=== PATIENT | female | born 1945 | race Caucasian/White ===

== ENCOUNTER 2016-10-02 17:06 | Observation (INO) | payer MEDICARE ==
[2016-10-02] MEDS ORDERED: Acetaminophen 325 MG Tab PO PRN (17:39)
--- NOTE | 2016-10-02 17:58 | PCM.HP ---
H&P History of Present Illness - General Date of Service: 10/02/16 Admit Problem/Dx: Admission Diagnosis/Problem Admission Diagnosis/Problem Bleeding Source of Information: Patient History Limitations: Reports: No Limitations - History of Present Illness Initial Comments - Free Text/Narative: Ms. Pandya is a 71 yo female with history as below who presented to clinic today for evaluation of inability to void since last night at 6 pm. She has been drinking well and not having any vomiting or diarrhea. She has had the urge to void and tried sitting in a warm bath and drinking tea but still was unable to go. She denied any preceding dysuria, frequency, or urgency. Throughout the day today, she also noted leaking of bright red blood from her rectum. She stated this was mixed with mucous and was different in appearance than the bleeding she has had previously from her gastric ulcer. She has had some rectal pain. She also felt like her rectum may have prolapsed but she was able to reduce this on her own while sitting in the warm bath. The bleeding is small in quantity. She has a long history of diarrhea described in color as yellow. A colonoscopy in June 2016 was completely normal.. She has had some lower back pain as well as some lower abdominal pain along with this. She also states she had a fever to 101.2 a couple of days ago but that has not recurred. Her lower abdominal pain improved once she was I/O catheterized in clinic after the bladder scan showed >1 L of urine in her bladder. She had bronchitis a month ago but those symptoms are resolving. She did take levaquin for that. She denies any vaginal bleeding. - Related Data Allergies/Adverse Reactions: Allergies Allergy/AdvReac Type Severity Reaction Status Date / Time aspartame Allergy Cannot Verified 06/22/16 09:24 Remember Home Medications: Home Meds Aspirin [Halfprin] 81 mg PO BEDTIME 08/15/14 [History] LORazepam 0.5 - 1 mg PO BEDTIME 08/15/14 [History] Lovastatin 10 mg PO BEDTIME 08/15/14 [History] Metoprolol Succinate [Toprol XL] 12.5 mg PO BEDTIME 08/15/14 [History] Omeprazole [Prilosec] 20 mg PO BID 08/15/14 [History] Sodium Chloride [Saline Nasal [place]] 1 spray NS ASDIRECTED 08/15/14 [History] Albuterol/Ipratropium [DuoNeb 3.0-0.5 MG/3 ML] 3 ml NEB QID 06/16/16 [History] Calcium Carbonate/Vitamin D3 [Calcium 600 + D3 Softgel] 1 each PO BEDTIME [History] Cyanocobalamin (Vitamin B-12) [Vitamin B-12] 1,000 mcg IM Q30D 06/16/16 [History ] EPINEPHrine [Epipen] 0.3 mg IM ONETIME PRN 06/16/16 [History] Ferrous Sulfate 325 mg PO TID 06/16/16 [History] Fish Oil/[place]-3 Fatty Acids [Fish Oil] 1 each PO BEDTIME 06/16/16 [History] Hypromellose [GenTeal Mild to Moderate Ophth Soln] 1 drop EYEBOTH Q4H PRN [History] Magnesium Oxide 250 mg PO BEDTIME 06/16/16 [History] Multivitamin [Daily Multiple Vitamin] 1 tab PO BEDTIME 06/16/16 [History] Nitroglycerin [IJP: Nitroglycerin] 0.4 mg SL ASDIRECTED PRN 06/16/16 [History] Past Medical History HEENT History: Reports: Cataract Other HEENT History: Dry nares Cardiovascular History: Reports: CAD, Heart Failure, High Cholesterol, Hypertension Other Cardiovascular History: cornonary arthrosclerosis. mitral valve regurgitation. diastolic dysfunction (EF 60%). venous insufficiency (edema) Respiratory History: Reports: COPD Gastrointestinal History: Reports: Chronic Diarrhea, Hemorrhoids Genitourinary History: Reports: Chronic Renal Insuffiency Other Genitourinary History: CKD III Musculoskeletal History: Reports: Arthritis Other Musculoskeletal History: osteopenia. nocturnal leg cramps Neurological History: Reports: None Psychiatric History: Reports: Anxiety Endocrine/Metabolic History: Reports: Diabetes, Type II, Obesity/BMI 30+, Other (See Below) (vitamin B12 deficiency) Hematologic History: Reports: B12 Deficiency Immunologic History: Reports: None Oncologic (Cancer) History: Reports: None - Past Surgical History Head Surgeries/Procedures: Reports: None HEENT Surgical History: Reports: None Cardiovascular Surgical History: Reports: Coronary Artery Bypass Respiratory Surgical History: Reports: None GI Surgical History: Reports: Bariatric Procedure, Cholecystectomy, Colonoscopy Female Surgical History: Reports: Tubal Ligation Musculoskeletal Surgical History: Reports: Knee Replacement Oncologic Surgical History: Reports: None Social & Family History - Family History HEENT: Reports: Glaucoma Cardiac: Reports: CAD, High Cholesterol, Hypertension Respiratory: Reports: COPD Neurological: Reports: CVA Endocrine/Metabolic: Reports: Diabetes, type II - Tobacco Use Smoking Status *Q: Former Smoker Used Tobacco, but Quit: Yes Month Tobacco Last Used: quite 1988 - Caffeine Use Caffeine Use: Reports: Coffee, Tea - Alcohol Use Alcohol Use History: No Days Per Week of Alcohol Use: 0 Number of Drinks Per Day: 0 Total Drinks Per Week: 0 Alcohol Use in Last Twelve Months: Yes Alcohol Use Frequency: Rarely - Recreational Drug Use Recreational Drug Use: No Drug Use in Last 12 Months: No - Living Situation & Occupation Living situation: Reports: ( ; lives with retirement boyfriend), with Significant Other Occupation: Retired H&P Review of Systems - Review of Systems: Review Of Systems: See Below General: Reports: Fever, Weakness, Decreased Appetite HEENT: Reports: No Symptoms Pulmonary: Reports: No Symptoms Cardiovascular: Reports: No Symptoms Gastrointestinal: Reports: Abdominal Pain, Bloody Stool, Diarrhea, Decreased Appetite Genitourinary: Reports: Retention. Denies: Dysuria, Frequency, Burning, Urgency , Abnormal Menses Musculoskeletal: Reports: No Symptoms Skin: Reports: No Symptoms Psychiatric: Reports: No Symptoms Neurological: Reports: No Symptoms Exam - Exam Exam: See Below - Vital Signs Vital Signs: Last Vital Signs Temp 37.4 C 10/02/16 17:21 Pulse 102 H 10/02/16 17:21 Resp 18 10/02/16 17:21 BP 175/78 H 10/02/16 17:21 Pulse Ox 99 10/02/16 17:21 Weight: 91.263 kg - Exam General: Alert, Oriented, Cooperative. No: Mild Distress, Moderate Distress, Severe Distress HEENT: Conjunctiva Clear, Hearing Intact, Mucosa Moist & [place], Posterior Pharynx Clear, Pupils Equal, Pupils Reactive, TMs Clear Neck: Supple, Trachea Midline. No: Lymphadenopathy, Thyromegaly Lungs: Clear to Auscultation, Normal Respiratory Effort Cardiovascular: Regular Rate, Regular Rhythm, Normal S1, Normal S2. No: Systolic Murmur, Diastolic Murmur Abdomen: Normal Bowel Sounds, Soft. No: Organomegaly, Peritoneal Signs, Distention, Tenderness Rectal (Female) Exam: Normal Rectal Tone, Bloody Stool. No: Tenderness Back Exam: Normal Inspection, Full Range of Motion, Paraspinal Tenderness. No: Vertebral Tenderness Extremities: Normal Inspection, Normal Pulses, Edema (1+ to just below the knee bilaterally) Skin: Warm, Dry, Intact Neurological: Cranial Nerves Intact, Normal Speech, Normal Tone. No: Focal Deficit - Patient Data Result Diagrams: 10/02/16 20:22 *Q Meaningful Use (ADM) - VTE *Q VTE Criteria *Q: VTE Anticoagulation Contraindications: Med/tx not indicated/need - Stroke *Q Stroke Criteria *Q: - AMI *Q AMI Criteria *Q: - Problem List (1) Rectal bleeding SNOMED Code(s): 59769858 ICD Code: K62.5 - HEMORRHAGE OF ANUS AND RECTUM Status: Acute Current Visit: Yes Problem Details: - The bleeding seems to be a slow ooze. - Unclear etiology given recent colonoscopy (06/2016) was negative. Consider hemorrhoids vs. rectal ulceration from possible prolapse. Bleeding is not consistent with divertiulosis and would not be polyps or malignancy given recent negative colonoscopy. - Given stability of vital signs over time, would not be consistent with an upper GI bleed as this would have to be quite brisk to still be red. - CT negative apart from a "prominent uterus for age." - Although unlikely in the absence of colitis on CT, clostridium difficile infection is considered based on recent antibiotics. Will hopefully get a sample to send for this. - Since she [place] far out of town, the decision was made to admit her and monitor her hemoglobins and bleeding. - Will check CBC tonight and then again in the am. - If the bleeding stays quite minimal and her Hgb is stable, will likely dismiss home tomorrow with close outpatient follow-up. - Will do an INR and type and screen with her lab drawn this evening. - There is no indication for any antibiotics at this time. (2) Urinary retention SNOMED Code(s): 207917966 ICD Code: R33.9 - RETENTION OF URINE, UNSPECIFIED Status: Acute Current Visit: Yes Problem Details: - Unclear etiology for this as she has not had any recent medication changes. - Query whether it might be related to her enlarged uterus. - U/A completely negative in clinic, excluding UTI. - Will bladder scan q8 hours and I/O cath for residual >400. - She will need an u/s to be done and will hopefully be able to do that this week if she stays stable and is able to dismiss tomorrow. (3) Hypertension SNOMED Code(s): 04059451 ICD Code: I10 - ESSENTIAL (PRIMARY) HYPERTENSION Status: Chronic Current Visit: Yes Problem Details: - BP elevated on admission. - Will monitor over time. - In the absence of any symptoms, would not treat with additional hypertensives in the setting of a GI bleed. - Continue metoprolol. Qualifiers: Hypertension type: essential hypertension Qualified Code(s): I10 - Essential (primary) hypertension (4) CAD (coronary artery disease) SNOMED Code(s): 13067813 ICD Code: I25.10 - ATHSCL HEART DISEASE OF [place] CORONARY ARTERY W/O ANG PCTRS Status: Chronic Current Visit: Yes Problem Details: - Asymptomatic. - Continue metoprolol and aspirin. ASA should be fine given this is a lower GI bleed and it would be risky to hold this given her cardiac history. - Hold statin as she is only on this 3 days/week anyway. Qualifiers: Coronary Disease-Associated Artery/Lesion type: [place] artery [place] vs. transplanted heart: [place] heart Associated angina: without angina Qualified Code(s): I25.10 - Atherosclerotic heart disease of [place] coronary artery without angina pectoris (5) Mitral regurgitation SNOMED Code(s): 48656353 ICD Code: I34.0 - NONRHEUMATIC MITRAL (VALVE) INSUFFICIENCY Status: Chronic Current Visit: Yes Problem Details: - See above. Qualifiers: Cardiac valve disease etiology: nonrheumatic Qualified Code(s): I34.0 - Nonrheumatic mitral (valve) insufficiency (6) COPD (chronic obstructive pulmonary disease) SNOMED Code(s): 33106069 ICD Code: J44.9 - CHRONIC OBSTRUCTIVE PULMONARY DISEASE, UNSPECIFIED Status : Chronic Current Visit: Yes Problem Details: - Asymptomatic. - Continue scheduled DuoNebs. Qualifiers: COPD type: unspecified COPD Qualified Code(s): J44.9 - Chronic obstructive pulmonary disease, unspecified (7) Hyperlipidemia SNOMED Code(s): 76465288 ICD Code: E78.5 - HYPERLIPIDEMIA, UNSPECIFIED Status: Chronic Current Visit: Yes Problem Details: - Lovastatin will be held as this is nonformulary and she only takes this 3 days/week anyway. Qualifiers: Hyperlipidemia type: unspecified Qualified Code(s): E78.5 - Hyperlipidemia , unspecified (8) Diabetes mellitus SNOMED Code(s): 55864132 ICD Code: E11.9 - TYPE 2 DIABETES MELLITUS WITHOUT COMPLICATIONS Status: Chronic Current Visit: Yes Problem Details: - Has not been on medications since gastric bypass surgery. - Will not monitor glucoses in the absence of being on any treatment for her diabetes. 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 (10) Obesity SNOMED Code(s): 678730653 ICD Code: E66.9 - OBESITY, UNSPECIFIED Status: Chronic Current Visit: Yes Problem Details: - s/p gastric bypass. - As above, do not believe this is an upper GI bleed. - Continue omeprazole. Qualifiers: Obesity type: due to excess calories Obesity severity: non-morbid Qualified Code(s): E66.09 - Other obesity due to excess calories (11) Generalized anxiety disorder SNOMED Code(s): 06964952 ICD Code: F41.1 - GENERALIZED ANXIETY DISORDER Status: Chronic Current Visit: Yes Problem Details: - Continue lorazepam. (12) Chronic kidney disease SNOMED Code(s): 310014586 ICD Code: N18.9 - CHRONIC KIDNEY DISEASE, UNSPECIFIED Status: Chronic Current Visit: Yes Problem Details: - Creatinine at baseline when checked in clinic today. - Will give 500 cc this evening due to receiving contrast today. - Otherwise, will monitor daily. - Avoid further nephrotoxic agents and renally dose all medications. Qualifiers: Chronic kidney disease stage: stage 3 (moderate) Qualified Code(s): N18.3 - Chronic kidney disease, stage 3 (moderate) (13) Congestive heart failure SNOMED Code(s): 67528364 ICD Code: I50.9 - HEART FAILURE, UNSPECIFIED Status: Acute Current Visit : Yes Problem Details: - Asymptomatic. - See above under other cardiology problems. Qualifiers: Congestive heart failure type: diastolic Congestive heart failure chronicity: chronic Qualified Code(s): I50.32 - Chronic diastolic (congestive ) heart failure Problem List Initiated/Reviewed/Updated: Yes Orders Last 24hrs: Active Orders 24 hr Category Date Time Status Patient Status [ADT] Routine ADT 10/02/16 17:07 Active Notify Provider Vital Signs [RC] ASDIRECTED Care 10/02/16 17:40 Ordered Oxygen Therapy [RC] PRN Care 10/02/16 17:39 Ordered Up With Assistance [RC] ASDIRECTED Care 10/02/16 17:39 Ordered VTE/DVT Education [RC] PER UNIT ROUTINE Care 10/02/16 17:39 Ordered Vital Signs [RC] Q4H Care 10/02/16 17:39 Ordered Clear Liquid Diet [DIET] Diet 10/02/16 Dinner Ordered C DIFFICILE TOXIN BY PCR [MREF] Routine Lab 10/02/16 17:42 Uncollected CBC WITH AUTO DIFF [HEME] Routine Lab 10/02/16 20:00 Ordered CBC WITH AUTO DIFF [HEME] Routine Lab 10/03/16 05:11 Ordered Acetaminophen [Tylenol] Med 10/02/16 17:39 Ordered 650 mg PO Q4H PRN Anticoagulation Contraindications VTE [AST] Per Unit Oth 10/02/16 17:39 Ordered Routine Resuscitation Status Routine Resus Stat 10/02/16 17:39 Ordered Medication Orders Acetaminophen (Tylenol) 650 mg PO Q4H PRN PRN Reason: Pain (Mild 1-3)/fever Assessment/Plan Comment:: 71 yo female admitted under observation for monitoring of her hemoglobin and GI bleeding as well as to ensure she is able to void on her own. Please see details under problems above. No VTE prophylaxis indicated in the setting of her GI bleed and also presuming her stay will be <24 hours. She will be full code based on discussions on admission. Anticipate dismissal home tomorrow unless there is a change in her clinical status.
[2016-10-02] MEDS ORDERED: Sodium Chloride 0.9% 500 ML IV SCH (18:00)
[2016-10-02] MEDS ORDERED: Dextran 70/Hypromellose/PF Ophth Soln 0.9 ML UD EYEBOTH PRN (18:19)
[2016-10-02] MEDS ORDERED: Magnesium Oxide 400 MG Tab PO SCH (20:00)
[2016-10-02] MEDS ORDERED: Metoprolol Succinate 25 MG Tab.ER PO SCH (20:00)
[2016-10-02] MEDS ORDERED: LORazepam 0.5 MG Tab PO SCH (20:00)
[2016-10-02] MEDS ORDERED: Calcium Carbonate/Vitamin D3 1250 MG-200 Unit Tab PO SCH (20:00)
[2016-10-02] MEDS ORDERED: Aspirin 81 MG Tab.EC PO SCH (20:00)
[2016-10-02] MEDS: Omeprazole 20 MG Cap.CR PO SCH (20:24)
[2016-10-02] MEDS: Ferrous Sulfate 325 MG Tab PO SCH (20:24)
[2016-10-02] MEDS: Albuterol/Ipratropium 3.0-0.5 MG/3 ML Neb Soln NEB SCH (20:25)
[2016-10-03] MEDS: Albuterol/Ipratropium 3.0-0.5 MG/3 ML Neb Soln NEB SCH ×3 (07:30→14:42)
[2016-10-03] MEDS: Ferrous Sulfate 325 MG Tab PO SCH ×2 (08:05→11:48)
[2016-10-03] MEDS: Omeprazole 20 MG Cap.CR PO SCH (08:05)
--- NOTE | 2016-10-03 08:14 | PCM.PN ---
- General Info Date of Service: 10/03/16 Subjective Update: Slept ok. Continues with slow ooze from her rectum. Able to void on her own at times but did have to get I/O catheterized as least twice overnight. Otherwise, ROS negative as below. - Review of Systems General: Reports: No Symptoms HEENT: Reports: no symptoms Pulmonary: Reports: no symptoms Cardiovascular: Reports: No Symptoms Musculoskeletal: Reports: no symptoms Skin: Reports: no symptoms - Patient Data Vitals - most recent: Last Vital Signs Temp 36.7 C 10/03/16 05:15 Pulse 67 10/03/16 05:15 Resp 16 10/03/16 05:15 BP 137/65 10/03/16 05:15 Pulse Ox 94 L 10/03/16 07:29 Weight - most recent: 91.263 kg I&O - last 24 hours: Intake & Output 10/02/16 10/03/16 10/03/16 22:59 06:59 14:59 Intake Total 700 Output Total 1200 1400 Balance -1200 -700 Lab Results last 24 hrs: Laboratory Results - last 24 hr 10/02/16 10/02/16 10/02/16 Range/Units 20:22 20:22 20:22 WBC 8.9 (4.0-10.0) x10^3/uL RBC 4.04 (4.00-5.50) x10^6/uL Hgb 11.7 L D (12.0-16.0) g/dL Hct 35.6 (33.0-47.0) % MCV 88.1 (78.0-93.0) fL MCH 29.0 (26.0-32.0) pg MCHC 32.9 (32.0-36.0) g/dL RDW Coeff of [place] 14.8 (10.0-15.0) % Plt Count 219 (130-400) x10^3/uL Neut % (Auto) 72.9 (50.0-80.0) % Lymph % (Auto) 18.9 L (25.0-50.0) % [place] % (Auto) 5.5 (2.0-11.0) % Eos % (Auto) 2.4 (0.0-4.0) % Baso % (Auto) 0.3 (0.2-1.2) % PT 10.2 (10.0-12.8) SEC INR 0.9 L (2.0-3.5) Sodium (136-145) mmol/L Potassium (3.5-5.1) mmol/L Chloride (98-107) mmol/L Carbon Dioxide (21-32) mmol/L BUN (7-18) mg/dL Creatinine (0.55-1.02) mg/dL Est Cr Clr Drug Dosing mL/min Estimated GFR (MDRD) Glucose (74-106) mg/dL Calcium (8.5-10.1) mg/dL Blood Type O POSITIVE Gel Antibody Screen Negative 10/03/16 10/03/16 Range/Units 06:57 06:57 WBC 6.4 (4.0-10.0) x10^3/uL RBC 3.81 L (4.00-5.50) x10^6/uL Hgb 11.1 L (12.0-16.0) g/dL Hct 33.6 (33.0-47.0) % MCV 88.2 (78.0-93.0) fL MCH 29.1 (26.0-32.0) pg MCHC 33.0 (32.0-36.0) g/dL RDW Coeff of [place] 14.9 (10.0-15.0) % Plt Count 195 (130-400) x10^3/uL Neut % (Auto) 61.5 (50.0-80.0) % Lymph % (Auto) 25.8 (25.0-50.0) % [place] % (Auto) 7.1 (2.0-11.0) % Eos % (Auto) 5.0 H (0.0-4.0) % Baso % (Auto) 0.6 (0.2-1.2) % PT (10.0-12.8) SEC INR (2.0-3.5) Sodium 143 (136-145) mmol/L Potassium 3.7 (3.5-5.1) mmol/L Chloride 108 H (98-107) mmol/L Carbon Dioxide 29 (21-32) mmol/L BUN 9 (7-18) mg/dL Creatinine 1.0 (0.55-1.02) mg/dL Est Cr Clr Drug Dosing 36.53 mL/min Estimated GFR (MDRD) 55 Glucose 104 (74-106) mg/dL Calcium 8.5 (8.5-10.1) mg/dL Blood Type Gel Antibody Screen Med Orders - Current: Current Medications Acetaminophen (Tylenol) 650 mg PO Q4H PRN PRN Reason: Pain (Mild 1-3)/fever Albuterol/Ipratropium (Duoneb 3.0-0.5 Mg/3 Ml) 3 ml NEB QIDRT [facility] Last Admin: 10/03/16 07:30 Dose: 3 ml Aspirin (Halfprin) 81 mg PO BEDTIME [facility] Last Admin: 10/02/16 20:23 Dose: 81 mg Calcium Carbonate (Calcium Carbonate/Vitamin D 1250 Mg-200 Unit) 1 tab PO BEDTIME [facility] Last Admin: 10/02/16 20:24 Dose: 1 tab Ferrous Sulfate (Ferrous Sulfate) 325 mg PO TID [facility] Last Admin: 10/03/16 08:05 Dose: 325 mg Sodium Chloride (Normal Saline) 500 mls @ 100 mls/hr IV ASDIRECTED [facility] Last Admin: 10/02/16 19:00 Dose: 100 mls/hr Lorazepam (Ativan) 0.5 mg PO BEDTIME [facility] Last Admin: 10/02/16 20:23 Dose: 0.5 mg Magnesium Oxide (Magnesium Oxide) 400 mg PO BEDTIME [facility] Last Admin: 10/02/16 20:24 Dose: 400 mg Metoprolol Succinate (Toprol Xl) 12.5 mg PO BEDTIME [facility] Last Admin: 10/02/16 20:23 Dose: 12.5 mg Non-Formulary Medication (Hypromellose [[place] Mild To Moderate Ophth Soln]) 1 drop EYEBOTH Q4H PRN PRN Reason: Dry Eyes Omeprazole (Omeprazole) 20 mg PO BID [facility] Last Admin: 10/03/16 08:05 Dose: 20 mg - Exam General: alert, cooperative, no acute distress HEENT: Pupils equal, Pupils reactive, Mucous membr. moist/pink Neck: supple, no thyromegaly. No: lymphadenopathy Lungs: Clear to auscultation, Normal respiratory effort Cardiovascular: Regular Rate, Regular Rhythm Abdomen: bowel sounds present, soft, no tenderness, no distension Extremities: no edema, normal pulses Skin: warm, dry, intact - Problem List & Annotations (1) Rectal bleeding SNOMED Code(s): 30587745 Code(s): K62.5 - HEMORRHAGE OF ANUS AND RECTUM Status: Acute Current Visit: Yes Annotation/Comment:: - The bleeding seems to be a slow ooze. - Unclear etiology given recent colonoscopy (06/2016) was negative. - CT negative apart from a "prominent uterus for age." - Clostridium difficile test is pending. - Hgb down a bit but overall stable. Will plan to recheck again at 2 pm and consider dismissal at that time if stable. - There is no indication for any antibiotics at this time. (2) Urinary retention SNOMED Code(s): 681757584 Code(s): R33.9 - RETENTION OF URINE, UNSPECIFIED Status: Acute Current Visit: Yes Annotation/Comment:: - Unclear etiology for this as she has not had any recent medication changes. Better overnight though. - Query whether it might be related to her enlarged uterus. - U/A completely negative in clinic, excluding UTI. - Will bladder scan q8 hours and I/O cath for residual >400. - She will need an u/s to be done and will hopefully be able to do that this week if she stays stable and is able to dismiss tomorrow. (3) Hypertension SNOMED Code(s): 97820639 Code(s): I10 - ESSENTIAL (PRIMARY) HYPERTENSION Status: Chronic Current Visit: Yes Qualifiers: Hypertension type: essential hypertension Qualified Code(s): I10 - Essential (primary) hypertension Annotation/Comment:: - BP better overnight. - Continue metoprolol. (4) CAD (coronary artery disease) SNOMED Code(s): 33695778 Code(s): I25.10 - ATHSCL HEART DISEASE OF [place] CORONARY ARTERY W/O ANG PCTRS Status: Chronic Current Visit: Yes Qualifiers: Coronary Disease-Associated Artery/Lesion type: [place] artery [place] vs. transplanted heart: [place] heart Associated angina: without angina Qualified Code(s): I25.10 - Atherosclerotic heart disease of [place] coronary artery without angina pectoris Annotation/Comment:: - Asymptomatic. - Continue metoprolol and aspirin. ASA should be fine given this is a lower GI bleed and it would be risky to hold this given her cardiac history. - Hold statin as she is only on this 3 days/week anyway. (5) Mitral regurgitation SNOMED Code(s): 17578873 Code(s): I34.0 - NONRHEUMATIC MITRAL (VALVE) INSUFFICIENCY Status: Chronic Current Visit: Yes Qualifiers: Cardiac valve disease etiology: nonrheumatic Qualified Code(s): I34.0 - Nonrheumatic mitral (valve) insufficiency Annotation/Comment:: - See above. (6) COPD (chronic obstructive pulmonary disease) SNOMED Code(s): 92418104 Code(s): J44.9 - CHRONIC OBSTRUCTIVE PULMONARY DISEASE, UNSPECIFIED Status : Chronic Current Visit: Yes Qualifiers: COPD type: unspecified COPD Qualified Code(s): J44.9 - Chronic obstructive pulmonary disease, unspecified Annotation/Comment:: - Asymptomatic. - Continue scheduled DuoNebs. (7) Hyperlipidemia SNOMED Code(s): 53984255 Code(s): E78.5 - HYPERLIPIDEMIA, UNSPECIFIED Status: Chronic Current Visit: Yes Qualifiers: Hyperlipidemia type: unspecified Qualified Code(s): E78.5 - Hyperlipidemia , unspecified Annotation/Comment:: - Lovastatin will be held as this is nonformulary and she only takes this 3 days/week anyway. (8) Diabetes mellitus SNOMED Code(s): 00002529 Code(s): E11.9 - TYPE 2 DIABETES MELLITUS WITHOUT COMPLICATIONS Status: Chronic Current Visit: Yes Qualifiers: Diabetes mellitus type: type 2 Diabetes mellitus complication status: without complication Diabetes mellitus half-way insulin use: without half-way use Qualified Code(s): E11.9 - Type 2 diabetes mellitus without complications Annotation/Comment:: - Has not been on medications since gastric bypass surgery. - Will not monitor glucoses in the absence of being on any treatment for her diabetes. (9) Vitamin B12 deficiency SNOMED Code(s): 860629644 Code(s): E53.8 - DEFICIENCY OF OTHER SPECIFIED B GROUP VITAMINS Status: Chronic Current Visit: Yes Annotation/Comment:: - Not due for vitamin B12 at this time. (10) Obesity SNOMED Code(s): 399126867 Code(s): E66.9 - OBESITY, UNSPECIFIED Status: Chronic Current Visit: Yes Qualifiers: Obesity type: due to excess calories Obesity severity: non-morbid Qualified Code(s): E66.09 - Other obesity due to excess calories Annotation/Comment:: - s/p gastric bypass. - As above, do not believe this is an upper GI bleed. - Continue omeprazole. (11) Generalized anxiety disorder SNOMED Code(s): 94717618 Code(s): F41.1 - GENERALIZED ANXIETY DISORDER Status: Chronic Current Visit: Yes Annotation/Comment:: - Continue lorazepam. (12) Chronic kidney disease SNOMED Code(s): 057403885 Code(s): N18.9 - CHRONIC KIDNEY DISEASE, UNSPECIFIED Status: Chronic Current Visit: Yes Qualifiers: Chronic kidney disease stage: stage 3 (moderate) Qualified Code(s): N18.3 - Chronic kidney disease, stage 3 (moderate) Annotation/Comment:: - Creatinine at baseline when checked in clinic today. - Will give 500 cc this evening due to receiving contrast today. - Otherwise, will monitor daily. - Avoid further nephrotoxic agents and renally dose all medications. (13) Congestive heart failure SNOMED Code(s): 04992525 Code(s): I50.9 - HEART FAILURE, UNSPECIFIED Status: Acute Current Visit: Yes Qualifiers: Congestive heart failure type: diastolic Congestive heart failure chronicity: chronic Qualified Code(s): I50.32 - Chronic diastolic (congestive ) heart failure Annotation/Comment:: - Asymptomatic. - See above under other cardiology problems. - Problem List Review Problem List Initiated/Reviewed/Updated: Yes - My Orders Last 24 Hours: My Active Orders 10/02/16 17:07 Patient Status [ADT] Routine 10/02/16 17:39 Oxygen Therapy [RC] PRN Up With Assistance [RC] ASDIRECTED VTE/DVT Education [RC] .PRN Vital Signs [RC] 06,10,14,18,22,02 Acetaminophen [Tylenol] 650 mg PO Q4H PRN Anticoagulation Contraindications VTE [AST] Per Unit Routine Resuscitation Status Routine 10/02/16 17:40 Notify Provider Vital Signs [RC] ASDIRECTED 10/02/16 18:00 Sodium Chloride 0.9% [Normal Saline] 500 ml IV ASDIRECTED 10/02/16 18:19 Hypromellose [GenTeal Mild to Moderate Ophth Soln] 1 drop EYEBOTH Q4H PRN 10/02/16 19:19 C DIFFICILE TOXIN BY PCR [MREF] Routine 10/02/16 20:00 Bladder Scan [RC] 20,04,12 Albuterol/Ipratropium [DuoNeb 3.0-0.5 MG/3 ML] 3 ml NEB QIDRT Aspirin [Halfprin] 81 mg PO BEDTIME Calcium Carbonate/Vitamin D3 [Calcium Carbonate/Vitamin D 1250 MG-200 Unit] 1 tab PO BEDTIME Ferrous Sulfate 325 mg PO TID LORazepam [Ativan] 0.5 mg PO BEDTIME Magnesium Oxide 400 mg PO BEDTIME Metoprolol Succinate [Toprol XL] 12.5 mg PO BEDTIME Omeprazole 20 mg PO BID 10/02/16 Dinner Clear Liquid Diet [DIET] 10/03/16 14:00 CBC WITH AUTO DIFF [HEME] Routine - Assessment Assessment:: 71 yo female admitted for monitoring related to bright red rectal bleeding and urinary retention. Stable this morning. Hgb down slightly. - Plan Plan:: Please see details under problems above. No VTE prophylaxis indicated in the setting of her GI bleed and also presuming her stay will be <24 hours. She will be full code based on discussions on admission. Recheck hemoglobin at 2 pm and will decide disposition at that time - may be dismissing home today or possibly tomorrow depending on that result.
[2016-10-03 13:50] VITALS: BP 155/73
--- NOTE | 2016-10-03 15:55 | PCM.DCSUM1 ---
Discharge Summary - Hospital Course Brief History: Ms. Pandya is a 71 yo female who was admitted for observation related to bright red rectal bleeding and difficulty with urination. Although her labs in clinic were stable, the decision was made to admit her in the setting of her living remote from the [facility]. - Discharge Data Discharge Date: 10/03/16 Discharge Disposition: Home, Self-Care 01 Condition: Good - Discharge Diagnosis/Problem(s) (1) Rectal bleeding SNOMED Code(s): 14571242 ICD Code: K62.5 - HEMORRHAGE OF ANUS AND RECTUM Status: Acute Current Visit: Yes Problem Details: Her rectal bleeding has now resolved. Unclear etiology given recent colonoscopy (06/2016) was negative. Absence of vital sign instability essentially rules out upper GI etiology given bleeding was bright red. CT negative apart from a "prominent uterus for age." Clostridium difficile test is pending. Hemoglobin has been stable over the past 24 hours and her bleeding has resolved; therefore, she is stable for dismissal home with follow-up tomorrow in clinic. (2) Urinary retention SNOMED Code(s): 342676167 ICD Code: R33.9 - RETENTION OF URINE, UNSPECIFIED Status: Resolved Current Visit: Yes Problem Details: Unclear etiology for this as she has not had any recent medication changes and urinalysis was negative for any infection. Possibly related to uteromegaly. This is now resolved and she is voiding on her own. She will have a pelvis ultrasound done tomorrow before her follow-up appointment for further assessment of her uterus. (3) Hypertension SNOMED Code(s): 31837941 ICD Code: I10 - ESSENTIAL (PRIMARY) HYPERTENSION Status: Chronic Current Visit: Yes Problem Details: Blood pressure was initially elevated but improved throughout her stay. Home medications continued. Qualifiers: Hypertension type: essential hypertension Qualified Code(s): I10 - Essential (primary) hypertension (4) CAD (coronary artery disease) SNOMED Code(s): 27577074 ICD Code: I25.10 - ATHSCL HEART DISEASE OF [place] CORONARY ARTERY W/O ANG PCTRS Status: Chronic Current Visit: Yes Problem Details: Asymptomatic. Home medications continued with the exception of her lovastatin, which she only takes 3 days/week. Qualifiers: Coronary Disease-Associated Artery/Lesion type: [place] artery [place] vs. transplanted heart: [place] heart Associated angina: without angina Qualified Code(s): I25.10 - Atherosclerotic heart disease of [place] coronary artery without angina pectoris (5) Mitral regurgitation SNOMED Code(s): 38514563 ICD Code: I34.0 - NONRHEUMATIC MITRAL (VALVE) INSUFFICIENCY Status: Chronic Current Visit: Yes Problem Details: Home medications continued. Qualifiers: Cardiac valve disease etiology: nonrheumatic Qualified Code(s): I34.0 - Nonrheumatic mitral (valve) insufficiency (6) COPD (chronic obstructive pulmonary disease) SNOMED Code(s): 27013898 ICD Code: J44.9 - CHRONIC OBSTRUCTIVE PULMONARY DISEASE, UNSPECIFIED Status : Chronic Current Visit: Yes Problem Details: Asymptomatic. Home medications continued. Qualifiers: COPD type: unspecified COPD Qualified Code(s): J44.9 - Chronic obstructive pulmonary disease, unspecified (7) Hyperlipidemia SNOMED Code(s): 95139060 ICD Code: E78.5 - HYPERLIPIDEMIA, UNSPECIFIED Status: Chronic Current Visit: Yes Problem Details: Lovastatin was held as this is nonformulary and she only takes this 3 days/week anyway. Qualifiers: Hyperlipidemia type: unspecified Qualified Code(s): E78.5 - Hyperlipidemia , unspecified (8) Diabetes mellitus SNOMED Code(s): 79631362 ICD Code: E11.9 - TYPE 2 DIABETES MELLITUS WITHOUT COMPLICATIONS Status: Chronic Current Visit: Yes Problem Details: Has not been on medications since gastric bypass surgery. Glucoses were not monitored in the absence of being on any treatment for her diabetes. 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 (10) Obesity SNOMED Code(s): 241274579 ICD Code: E66.9 - OBESITY, UNSPECIFIED Status: Chronic Current Visit: Yes Problem Details: She is status post gastric bypass. As above, do not believe this is an upper GI bleed. Home medications continued. Qualifiers: Obesity type: due to excess calories Obesity severity: non-morbid Qualified Code(s): E66.09 - Other obesity due to excess calories (11) Generalized anxiety disorder SNOMED Code(s): 20438072 ICD Code: F41.1 - GENERALIZED ANXIETY DISORDER Status: Chronic Current Visit: Yes Problem Details: Home medications continued. (12) Chronic kidney disease SNOMED Code(s): 094943274 ICD Code: N18.9 - CHRONIC KIDNEY DISEASE, UNSPECIFIED Status: Chronic Current Visit: Yes Problem Details: Creatinine normal throughout admission. Got 500 cc last night due to receiving contrast today. Has otherwise done well. Qualifiers: Chronic kidney disease stage: stage 3 (moderate) Qualified Code(s): N18.3 - Chronic kidney disease, stage 3 (moderate) (13) Congestive heart failure SNOMED Code(s): 56488492 ICD Code: I50.9 - HEART FAILURE, UNSPECIFIED Status: Chronic Current Visit: Yes Problem Details: Asymptomatic. See above under other cardiology problems. Qualifiers: Congestive heart failure type: diastolic Congestive heart failure chronicity: chronic Qualified Code(s): I50.32 - Chronic diastolic (congestive ) heart failure - Patient Summary/Data Operative Procedure(s) Performed: none Complications: none Consults: none Labs Pending at D/C: none Recommended Follow-up Testing/Procedures: pelvis ultrasound scheduled for tomorrow, consider CBC tomorrow as well Planned Operative Procedure(s) after DC: none Hospital Course: See above under problems for details. Patient had to be in and out catheterized a couple times initially but was then able to void on her own. Her rectal bleeding resolved and she had a few normal for her bowel movements. She will be dismissed home to have close outpatient follow-up tomorrow. - Patient Instructions Diet: Usual Diet as Tolerated Activity: As Tolerated Driving: Do Not Drive Showering/Bathing: May Shower Notify Provider of: Fever, Increased Pain, Swelling and Redness, Drainage, Nausea and/or Vomiting - Discharge Plan Home Medications: Home Meds Aspirin [Halfprin] 81 mg PO BEDTIME 08/15/14 [History] LORazepam 0.5 - 1 mg PO BEDTIME 08/15/14 [History] Lovastatin 10 mg PO [id number]/15/14 [History] Metoprolol Succinate [Toprol XL] 12.5 mg PO BEDTIME 08/15/14 [History] Omeprazole [Prilosec] 20 mg PO BID 08/15/14 [History] Albuterol/Ipratropium [DuoNeb 3.0-0.5 MG/3 ML] 3 ml NEB QID 06/16/16 [History] Calcium Carbonate/Vitamin D3 [Calcium 600 + Vit D 400 Softgl] 1 each PO BEDTIME 06/16/16 [History] Cyanocobalamin (Vitamin B-12) [Vitamin B-12] 1,000 mcg IM Q30D 06/16/16 [History ] EPINEPHrine [Epipen] 0.3 mg IM ONETIME PRN 06/16/16 [History] Ferrous Sulfate 325 mg PO TID 06/16/16 [History] Fish Oil/[place]-3 Fatty Acids [Fish Oil 1,000 MG] 1 each PO BEDTIME 06/16/16 [ History] Hypromellose [GenTeal Mild to Moderate Ophth Soln] 1 drop EYEBOTH Q4H PRN [History] Magnesium Oxide 250 mg PO BEDTIME 06/16/16 [History] Multivitamin [Daily Multiple Vitamin] 1 tab PO BEDTIME 06/16/16 [History] Nitroglycerin [IJP: Nitroglycerin] 0.4 mg SL ASDIRECTED PRN 06/16/16 [History] Ipratropium/Albuterol Sulfate [Combivent Respimat Inhal [place]] 1 inh PO QID PRN MDD 4 puffs 10/03/16 [History] Sodium Chloride 0.65% [[place] Nasal [place]] 2 spray NASBOTH Q2H PRN 10/03/16 [ History] - Discharge Summary/Plan Comment DC Time >30 min.: No - General Info Date of Service: 10/03/16 Subjective Update: Doing better this afternoon. No further bleeding per rectum since early this morning. Has been able to void today without issues. Otherwise, see today's progress note. - Patient Data Vitals - Most Recent: Last Vital Signs Temp 36.7 C 10/03/16 13:46 Pulse 72 10/03/16 13:46 Resp 24 H 10/03/16 13:46 BP 155/73 H 10/03/16 13:46 Pulse Ox 96 10/03/16 13:46 Weight - Most Recent: 91.263 kg I&O - Last 24 hours: Intake & Output 10/03/16 10/03/16 10/03/16 06:59 14:59 22:59 Intake Total 700 970 Output Total 1400 425 Balance -700 545 Lab Results - Last 24 hrs: Laboratory Results - last 24 hr 10/02/16 10/02/16 10/02/16 Range/Units 20:22 20:22 20:22 WBC 8.9 (4.0-10.0) x10^3/uL RBC 4.04 (4.00-5.50) x10^6/uL Hgb 11.7 L D (12.0-16.0) g/dL Hct 35.6 (33.0-47.0) % MCV 88.1 (78.0-93.0) fL MCH 29.0 (26.0-32.0) pg MCHC 32.9 (32.0-36.0) g/dL RDW Coeff of [place] 14.8 (10.0-15.0) % Plt Count 219 (130-400) x10^3/uL Neut % (Auto) 72.9 (50.0-80.0) % Lymph % (Auto) 18.9 L (25.0-50.0) % [place] % (Auto) 5.5 (2.0-11.0) % Eos % (Auto) 2.4 (0.0-4.0) % Baso % (Auto) 0.3 (0.2-1.2) % PT 10.2 (10.0-12.8) SEC INR 0.9 L (2.0-3.5) Sodium (136-145) mmol/L Potassium (3.5-5.1) mmol/L Chloride (98-107) mmol/L Carbon Dioxide (21-32) mmol/L BUN (7-18) mg/dL Creatinine (0.55-1.02) mg/dL Est Cr Clr Drug Dosing mL/min Estimated GFR (MDRD) Glucose (74-106) mg/dL Calcium (8.5-10.1) mg/dL Blood Type O POSITIVE Gel Antibody Screen Negative 10/03/16 10/03/16 10/03/16 Range/Units 06:57 06:57 14:26 WBC 6.4 5.5 (4.0-10.0) x10^3/uL RBC 3.81 L 3.91 L (4.00-5.50) x10^6/uL Hgb 11.1 L 11.3 L (12.0-16.0) g/dL Hct 33.6 34.3 (33.0-47.0) % MCV 88.2 87.7 (78.0-93.0) fL MCH 29.1 28.9 (26.0-32.0) pg MCHC 33.0 32.9 (32.0-36.0) g/dL RDW Coeff of [place] 14.9 15.0 (10.0-15.0) % Plt Count 195 189 (130-400) x10^3/uL Neut % (Auto) 61.5 67.0 (50.0-80.0) % Lymph % (Auto) 25.8 23.2 L (25.0-50.0) % [place] % (Auto) 7.1 6.9 (2.0-11.0) % Eos % (Auto) 5.0 H 2.4 (0.0-4.0) % Baso % (Auto) 0.6 0.5 (0.2-1.2) % PT (10.0-12.8) SEC INR (2.0-3.5) Sodium 143 (136-145) mmol/L Potassium 3.7 (3.5-5.1) mmol/L Chloride 108 H (98-107) mmol/L Carbon Dioxide 29 (21-32) mmol/L BUN 9 (7-18) mg/dL Creatinine 1.0 (0.55-1.02) mg/dL Est Cr Clr Drug Dosing 36.53 mL/min Estimated GFR (MDRD) 55 Glucose 104 (74-106) mg/dL Calcium 8.5 (8.5-10.1) mg/dL Blood Type Gel Antibody Screen Med Orders - Current: Current Medications Acetaminophen (Tylenol) 650 mg PO Q4H PRN PRN Reason: Pain (Mild 1-3)/fever Last Admin: 10/03/16 15:09 Dose: 650 mg Albuterol/Ipratropium (Duoneb 3.0-0.5 Mg/3 Ml) 3 ml NEB QIDRT [facility] Last Admin: 10/03/16 14:42 Dose: 3 ml Artificial Tears (Tears [place]atur[place] Free) 1 each EYEBOTH Q4H PRN PRN Reason: Dry Eyes Aspirin (Halfprin) 81 mg PO BEDTIME [facility] Last Admin: 10/02/16 20:23 Dose: 81 mg Calcium Carbonate (Calcium Carbonate/Vitamin D 1250 Mg-200 Unit) 1 tab PO BEDTIME [facility] Last Admin: 10/02/16 20:24 Dose: 1 tab Ferrous Sulfate (Ferrous Sulfate) 325 mg PO TID [facility] Last Admin: 10/03/16 11:48 Dose: 325 mg Sodium Chloride (Normal Saline) 500 mls @ 100 mls/hr IV ASDIRECTED [facility] Last Admin: 10/02/16 19:00 Dose: 100 mls/hr Lorazepam (Ativan) 0.5 mg PO BEDTIME [facility] Last Admin: 10/02/16 20:23 Dose: 0.5 mg Magnesium Oxide (Magnesium Oxide) 400 mg PO BEDTIME [facility] Last Admin: 10/02/16 20:24 Dose: 400 mg Metoprolol Succinate (Toprol Xl) 12.5 mg PO BEDTIME [facility] Last Admin: 10/02/16 20:23 Dose: 12.5 mg Omeprazole (Omeprazole) 20 mg PO BIDAC [facility] Discontinued Medications Omeprazole (Omeprazole) 20 mg PO BID [facility] Last Admin: 10/03/16 08:05 Dose: 20 mg *Q Meaningful Use (DIS) - VTE *Q VTE Criteria *Q: VTE Anticoagulation Contraindications: Med/tx not indicated/need - Stroke *Q Stroke Criteria *Q: - AMI *Q AMI Criteria *Q:
[2016-10-03] MEDS ORDERED: Omeprazole 20 MG Cap.CR PO SCH (17:00)
== END 2016-10-03 17:30 | disposition home or self-care (01) ==
LOC: VM.MS 17:07
PROVIDERS: ADMIT Family Medicine; ATTEND Family Medicine
DX: K62.5 Hemorrhage of anus and rectum (principal); R33.8 Other retention of urine; I34.0 Nonrheumatic mitral (valve) insufficiency; J44.9 Chronic obstructive pulmonary disease, unspecified; E78.5 Hyperlipidemia, unspecified; E53.8 Deficiency of other specified B group vitamins; E66.09 Other obesity due to excess calories; F41.1 Generalized anxiety disorder; E11.22 Type 2 diabetes mellitus with diabetic chronic kidney disease; I13.0 Hypertensive heart and chronic kidney disease with heart failure and stage 1 through stage 4 chronic kidney disease, or unspecified chronic kidney disease; N18.3 Chronic kidney disease, stage 3 (moderate); I50.32 Chronic diastolic (congestive) heart failure; Z79.82 Long term (current) use of aspirin; Z79.899 Other long term (current) drug therapy; Z88.8 Allergy status to other drugs, medicaments and biological substances; Z90.49 Acquired absence of other specified parts of digestive tract; I25.810 Atherosclerosis of coronary artery bypass graft(s) without angina pectoris; Z98.51 Tubal ligation status; Z98.84 Bariatric surgery status; Z96.659 Presence of unspecified artificial knee joint; Z87.891 Personal history of nicotine dependence
CPT/HCPCS: 36415; 51798; 74177; 80048; 85025; 85610; 86850; 86900; 86901; 87493; 94640; 94760; 96360; 96361; A9270; G0378; G0379; J7040

== ENCOUNTER 2016-11-17 21:23 | Emergency (ER) | payer MEDICARE ==
[2016-11-17 21:58] VITALS: BP 181/63
[2016-11-17] MEDS ORDERED: Silver Sulfadiazine 1% Crm 50 GM Tube TOP ONE (22:00)
--- NOTE | 2016-11-17 22:01 | EDM.PDOC ---
ED HPI GENERAL MEDICAL PROBLEM - General Chief Complaint: Burn Stated Complaint: akhtar to arms bilateral, sore shoulder Time Seen by Provider: 11/17/16 21:49 Source of Information: Reports: Patient History Limitations: Reports: No Limitations - History of Present Illness INITIAL COMMENTS - FREE TEXT/NARRATIVE: Patient was making dinner at her home and after turning off her stove burners, she lost her balance and landed with her distal forearms on the burners. She also did fall to the floor and landed on her right shoulder. She has some complaints of soreness to the shoulder. She did not strike her head, no LOC, no dizziness, nausea, chest pain, headache, SOB. History of gastric bypass surgery. Onset: Today Onset Date: 11/17/16 Onset Time: 20:00 Location: Reports: Upper Extremity, Left, Upper Extremity, Right Quality: Reports: Ache Severity: Mild Improves with: Reports: Cold Therapy Associated Symptoms: Reports: No Other Symptoms - Related Data Allergies Allergy/AdvReac Type Severity Reaction Status Date / Time aspartame Allergy Anaphylactic Verified 11/17/16 21:40 Shock Home Meds: Home Meds Aspirin [Halfprin] 81 mg PO BEDTIME 08/15/14 [History] LORazepam 0.5 - 1 mg PO BEDTIME 08/15/14 [History] Lovastatin 10 mg PO MO@199908/15/14 [History] Metoprolol Succinate [Toprol XL] 12.5 mg PO BEDTIME 08/15/14 [History] Omeprazole [Prilosec] 20 mg PO BID 08/15/14 [History] Albuterol/Ipratropium [DuoNeb 3.0-0.5 MG/3 ML] 3 ml NEB QID 06/16/16 [History] Calcium Carbonate/Vitamin D3 [Calcium 600 + Vit D 400 Softgl] 1 each PO BEDTIME 06/16/16 [History] Cyanocobalamin (Vitamin B-12) [Vitamin B-12] 1,000 mcg IM Q30D 06/16/16 [History ] EPINEPHrine [Epipen] 0.3 mg IM ONETIME PRN 06/16/16 [History] Ferrous Sulfate 325 mg PO TID 06/16/16 [History] Fish Oil/[place]-3 Fatty Acids [Fish Oil 1,000 MG] 1 each PO BEDTIME 06/16/16 [ History] Hypromellose [GenTeal Mild to Moderate Ophth Soln] 1 drop EYEBOTH Q4H PRN [History] Magnesium Oxide 250 mg PO BEDTIME 06/16/16 [History] Multivitamin [Daily Multiple Vitamin] 1 tab PO BEDTIME 06/16/16 [History] Nitroglycerin [IJP: Nitroglycerin] 0.4 mg SL ASDIRECTED PRN 06/16/16 [History] Ipratropium/Albuterol Sulfate [Combivent Respimat Inhal [place]] 1 inh PO QID PRN MDD 4 puffs 10/03/16 [History] Sodium Chloride 0.65% [[place] Nasal [place]] 2 spray NASBOTH Q2H PRN 10/03/16 [ History] Past Medical History HEENT History: Reports: Cataract Other HEENT History: Dry nares Cardiovascular History: Reports: CAD, Heart Failure, High Cholesterol, Hypertension Other Cardiovascular History: cornonary arthrosclerosis. mitral valve regurgitation. diastolic dysfunction (EF 60%). venous insufficiency (edema) Respiratory History: Reports: COPD Gastrointestinal History: Reports: Chronic Diarrhea, Hemorrhoids Other Gastrointestinal History: chronic kidney disease (stage 3) Genitourinary History: Reports: Chronic Renal Insuffiency Other Genitourinary History: CKD III Musculoskeletal History: Reports: Arthritis Other Musculoskeletal History: osteopenia. nocturnal leg cramps Neurological History: Reports: None Psychiatric History: Reports: Anxiety Other Psychiatric History: obesity Endocrine/Metabolic History: Reports: Diabetes, Type II, Obesity/BMI 30+, Other (See Below) (vitamin B12 deficiency) Hematologic History: Reports: B12 Deficiency Immunologic History: Reports: None Oncologic (Cancer) History: Reports: None - Past Surgical History Head Surgeries/Procedures: Reports: None HEENT Surgical History: Reports: None Cardiovascular Surgical History: Reports: Coronary Artery Bypass Respiratory Surgical History: Reports: None GI Surgical History: Reports: Bariatric Procedure, Cholecystectomy, Colonoscopy Female Surgical History: Reports: Tubal Ligation Musculoskeletal Surgical History: Reports: Knee Replacement Oncologic Surgical History: Reports: None Social & Family History - Family History HEENT: Reports: Glaucoma Cardiac: Reports: CAD, High Cholesterol, Hypertension Respiratory: Reports: COPD Neurological: Reports: CVA Endocrine/Metabolic: Reports: Diabetes, type II - Tobacco Use Smoking Status *Q: Former Smoker Used Tobacco, but Quit: Yes Month Tobacco Last Used: quite 1989 - Caffeine Use Caffeine Use: Reports: Coffee, Tea - Alcohol Use Days Per Week of Alcohol Use: 0 Number of Drinks Per Day: 0 Total Drinks Per Week: 0 - Recreational Drug Use Recreational Drug Use: No Drug Use in Last 12 Months: No - Living Situation & Occupation Living situation: Reports: ( ; lives with intermediate boyfriend), with Significant Other Occupation: Retired ED ROS GENERAL - Review of Systems Review Of Systems: See Below Constitutional: Reports: No Symptoms HEENT: Reports: No Symptoms Respiratory: Reports: No Symptoms Cardiovascular: Reports: No Symptoms Endocrine: Reports: No Symptoms GI/Abdominal: Reports: No Symptoms : Reports: No Symptoms Musculoskeletal: Reports: Shoulder Pain Skin: Reports: Burn(s) Neurological: Reports: No Symptoms Psychiatric: Reports: No Symptoms Hematologic/Lymphatic: Reports: No Symptoms Immunologic: Reports: No Symptoms ED EXAM, BURN/SMOKE INHALATION - Physical Exam Exam: See Below Exam Limited By: No Limitations General Appearance: Alert, WD/WN, No Apparent Distress Eye Exam: Bilateral Eye: EOMI, PERRL Head: No Symptoms Neck: Normal, Supple, Non-Tender to Palpation, Full Range of Motion Respiratory: No Respiratory Distress, Lungs Clear, Normal Breath Sounds, No Accessory Muscle Use Cardiovascular: Normal Peripheral Pulses, Regular Rate, Rhythm, No Edema GI/Abdominal: Normal Bowel Sounds, Soft, Non-Tender Extremity Exam: No Evidence of Injury, Normal Range of Motion, Non-Tender Neurological: Alert, Oriented, CN II-XII Intact, Normal Cognition Psychiatric: Normal Affect, Normal Mood Skin Exam: Warm, Dry, Normal Color, No Rash, Wound/Incision Comments: bilateral lower distal forearm akhtar with 1 ruptured blister on each side. Front/Back Body Diagram: 1 - burn - 1st degree 2 - burn - first degree Course - Re-Assessments/Exams Free Text/Narrative Re-Assessment/Exam: 11/17/16 22:00 silvadene cream and dressings applied. Departure - Departure Time of Disposition: 22:06 Disposition: Home, Self-Care 01 Condition: Good Clinical Impression: Akhtar of multiple specified sites - Discharge Information Instructions: Burn Care, [id number], Wound Infection, [id number] Forms: ED Department Discharge Additional Instructions: Keep your dressing and burn sites clean and dry. Wash with soap and water, do not submerge in water Change your dressing daily. Follow up with your primary doctor as needed. Please watch for signs of infection including fever over 101.5 F, chills, pus like drainage from the burn sites, increased redness, warmths, swelling. Please call with any questions or concerns. - Problem List & Annotations (1) Akhtar of multiple specified sites Status: Acute Priority: Low - Problem List Review Problem List Initiated/Reviewed/Updated: Yes - Assessment/Plan Assessment:: akhtar 1st degree to bilateral distal forearms Plan: Keep your dressing and burn sites clean and dry. Wash with soap and water, do not submerge in water Change your dressing daily. Follow up with your primary doctor as needed. Please watch for signs of infection including fever over 101.5 F, chills, pus like drainage from the burn sites, increased redness, warmths, swelling. Please call with any questions or concerns.
== END 2016-11-17 22:24 | disposition home or self-care (01) ==
LOC: VM.ED 21:23
DX: T22.212A Burn of second degree of left forearm, initial encounter (principal); T22.211A Burn of second degree of right forearm, initial encounter; I13.0 Hypertensive heart and chronic kidney disease with heart failure and stage 1 through stage 4 chronic kidney disease, or unspecified chronic kidney disease; I50.9 Heart failure, unspecified; N18.3 Chronic kidney disease, stage 3 (moderate); E78.00 Pure hypercholesterolemia, unspecified; J44.9 Chronic obstructive pulmonary disease, unspecified; E66.9 Obesity, unspecified; F41.9 Anxiety disorder, unspecified; E11.9 Type 2 diabetes mellitus without complications; M19.90 Unspecified osteoarthritis, unspecified site; I25.810 Atherosclerosis of coronary artery bypass graft(s) without angina pectoris; E11.22 Type 2 diabetes mellitus with diabetic chronic kidney disease; Z90.49 Acquired absence of other specified parts of digestive tract; Z88.9 Allergy status to unspecified drugs, medicaments and biological substances; Z98.51 Tubal ligation status; Z96.659 Presence of unspecified artificial knee joint; Z68.41 Body mass index [BMI] 40.0-44.9, adult; Z87.891 Personal history of nicotine dependence; X19.XXXA Contact with other heat and hot substances, initial encounter; Y93.G3 Activity, cooking and baking; Y92.000 Kitchen of unspecified non-institutional (private) residence as the place of occurrence of the external cause
CPT/HCPCS: 16020; 99283; A9270

== ENCOUNTER 2018-12-18 11:12 | Emergency (ER) | payer MEDICARE ==
[2018-12-18] MEDS ORDERED: Sodium Chloride 0.9% 10 ML Syringe FLUSH PRN (11:22)
[2018-12-18 12:18] LABS: CHLORIDE,CL 106 mmol/L (98-107); SODIUM,NA 144 mmol/L (136-145)
[2018-12-18 12:19] LABS: ANION GAP 16.2 mmol/L (10-20)
[2018-12-18] MEDS ORDERED: Iopamidol 612 MG/ML 100 ML Bottle IVPUSH ONE (12:29)
--- NOTE | 2018-12-18 12:42 | EDM.PDOC ---
ED HPI GENERAL MEDICAL PROBLEM - General Chief Complaint: Syncope Stated Complaint: ER Time Seen by Provider: 12/18/18 11:20 Source of Information: Reports: Patient, EMS History Limitations: Reports: No Limitations - History of Present Illness INITIAL COMMENTS - FREE TEXT/NARRATIVE: Pt s/p right leg surgery was on her way to therapy. States was driving had some vision changes then found herself on the curb. PT with left side abd pain. Pt with no other complaints at this time. Onset: Today Location: Reports: Abdomen Quality: Reports: Ache - Related Data Allergies Allergy/AdvReac Type Severity Reaction Status Date / Time aspartame Allergy Severe Anaphylactic Verified 05/10/18 13:02 Shock Home Meds: Home Meds Aspirin [Halfprin] 81 mg PO BEDTIME 08/15/14 [History] LORazepam 0.5 - 1 mg PO BEDTIME 08/15/14 [History] Lovastatin 10 mg PO MOWEFR@199908/15/14 [History] Metoprolol Succinate [Toprol XL] 12.5 mg PO BEDTIME 08/15/14 [History] Omeprazole [Prilosec] 20 mg PO BID 08/15/14 [History] Albuterol/Ipratropium [DuoNeb 3.0-0.5 MG/3 ML] 3 ml NEB QID 06/16/16 [History] Calcium Carbonate/Vitamin D3 [Calcium 600 + Vit D 400 Softgl] 1 each PO BEDTIME 06/16/16 [History] Cyanocobalamin (Vitamin B-12) [Vitamin B-12] 1,000 mcg IM Q30D 06/16/16 [History ] EPINEPHrine [Epipen] 0.3 mg IM ONETIME PRN 06/16/16 [History] Ferrous Sulfate 325 mg PO TID 06/16/16 [History] Fish Oil/[place]-3 Fatty Acids [Fish Oil 1,000 MG] 1 each PO BEDTIME 06/16/16 [ History] Hypromellose [GenTeal Mild to Moderate Ophth Soln] 1 drop EYEBOTH Q4H PRN [History] Magnesium Oxide 250 mg PO BEDTIME 06/16/16 [History] Multivitamin [Daily Multiple Vitamin] 1 tab PO BEDTIME 06/16/16 [History] Nitroglycerin [IJP: Nitroglycerin] 0.4 mg SL ASDIRECTED PRN 06/16/16 [History] Ipratropium/Albuterol Sulfate [Combivent Respimat 20-100 Mcg] 1 inh PO QID PRN MDD 4 puffs 10/03/16 [History] Sodium Chloride 0.65% [[place] Nasal [place]] 2 spray NASBOTH Q2H PRN 10/03/16 [ History] Past Medical History HEENT History: Reports: Cataract Other HEENT History: Dry nares Cardiovascular History: Reports: CAD, Heart Failure, High Cholesterol, Hypertension Other Cardiovascular History: cornonary arthrosclerosis. mitral valve regurgitation. diastolic dysfunction (EF 60%). venous insufficiency (edema) Respiratory History: Reports: COPD Gastrointestinal History: Reports: Chronic Diarrhea, Hemorrhoids Other Gastrointestinal History: chronic kidney disease (stage 3) Genitourinary History: Reports: Chronic Renal Insuffiency Other Genitourinary History: CKD III Musculoskeletal History: Reports: Arthritis Other Musculoskeletal History: osteopenia. nocturnal leg cramps Neurological History: Reports: None Psychiatric History: Reports: Anxiety Other Psychiatric History: obesity Endocrine/Metabolic History: Reports: Diabetes, Type II, Obesity/BMI 30+, Other (See Below) Hematologic History: Reports: B12 Deficiency Immunologic History: Reports: None Oncologic (Cancer) History: Reports: None - Past Surgical History Head Surgeries/Procedures: Reports: None HEENT Surgical History: Reports: None Cardiovascular Surgical History: Reports: Coronary Artery Bypass Respiratory Surgical History: Reports: None GI Surgical History: Reports: Bariatric Procedure, Cholecystectomy, Colonoscopy Female Surgical History: Reports: Tubal Ligation Musculoskeletal Surgical History: Reports: Knee Replacement Oncologic Surgical History: Reports: None Social & Family History - Family History HEENT: Reports: Glaucoma Cardiac: Reports: CAD, High Cholesterol, Hypertension Respiratory: Reports: COPD Neurological: Reports: CVA Endocrine/Metabolic: Reports: Diabetes, type II - Caffeine Use Caffeine Use: Reports: Coffee, Tea - Living Situation & Occupation Living situation: Reports: ( ; lives with sap security architect boyfriend), with Significant Other Occupation: Retired ED ROS GENERAL - Review of Systems Review Of Systems: See Below Constitutional: Reports: No Symptoms HEENT: Reports: No Symptoms Respiratory: Reports: No Symptoms Cardiovascular: Reports: No Symptoms GI/Abdominal: Reports: Abdominal Pain : Reports: No Symptoms Musculoskeletal: Reports: No Symptoms - Physical Exam Exam: See Below Text/Narrative:: CT noted mesenteric edema and reactive lymph nodes. Exam Limited By: No Limitations General Appearance: Alert, WD/WN Ears: Normal External Exam Nose: Normal Inspection Throat/Mouth: Normal Inspection Head Exam: Atraumatic, Normocephalic Neck: Normal Inspection Respiratory/Chest: No Respiratory Distress, Lungs Clear, Normal Breath Sounds, No Accessory Muscle Use, Chest Non-Tender Cardiovascular: Normal Peripheral Pulses, Regular Rate, Rhythm, No Edema, No Gallop GI/Abdominal: Normal Bowel Sounds Back Exam: Normal Inspection Extremities: Normal Inspection, Normal Range of Motion Psychiatric: Normal Affect Skin Exam: Warm, Dry, Intact Course - Orders/Labs/Meds Orders: Active Orders 24 hr Category Date Time Status EKG 12 Lead [EKG Documentation Completion] [RC] STAT Care 12/18/18 11:23 Active FECAL OCCULT BLOOD,POC DIAG [POC] Stat Lab 12/18/18 12:02 Ordered Sodium Chloride 0.9% [Saline Flush] Med 12/18/18 11:22 Active 10 ml FLUSH ASDIRECTED PRN Peripheral IV Insertion Adult [OM.PC] Routine Oth 12/18/18 11:22 Ordered Medication Orders Sodium Chloride (Saline Flush) 10 ml FLUSH ASDIRECTED PRN PRN Reason: Keep Vein Open Labs: Laboratory Tests 12/18/18 12/18/18 Range/Units 11:47 11:47 WBC 9.8 (4.0-10.0) x10^3/uL RBC 4.23 (4.00-5.50) x10^6/uL Hgb 11.8 L (12.0-16.0) g/dL Hct 36.1 (33.0-47.0) % MCV 85.3 (78.0-93.0) fL MCH 27.9 (26.0-32.0) pg MCHC 32.7 (32.0-36.0) g/dL RDW Coeff of [place] 14.8 (10.0-15.0) % Plt Count 248 (130-400) x10^3/uL Neut % (Auto) 78.5 (50.0-80.0) % Lymph % (Auto) 15.4 L (25.0-50.0) % [place] % (Auto) 4.4 (2.0-11.0) % Eos % (Auto) 1.5 (0.0-4.0) % Baso % (Auto) 0.2 (0.2-1.2) % Sodium 144 (136-145) mmol/L Potassium 4.2 (3.5-5.1) mmol/L Chloride 106 (98-107) mmol/L Carbon Dioxide 26 (21-32) mmol/L Anion Gap 16.2 (10-20) mmol/L BUN 9 (7-18) mg/dL Creatinine 1.1 H (0.55-1.02) mg/dL Est Cr Clr Drug Dosing TNP Estimated GFR (MDRD) 49 Glucose 125 H (74-106) mg/dL Calcium 9.0 (8.5-10.1) mg/dL Corrected Calcium 9.40 (8.5-10.1) mg/dL Total Bilirubin 0.4 (0.2-1.0) mg/dL AST 126 H (15-37) U/L ALT 90 H (14-59) U/L Alkaline Phosphatase 105 (46-116) U/L Troponin I < 0.017 (<=0.056) ng/mL Total Protein 7.5 (6.4-8.2) g/dL Albumin 3.5 (3.4-5.0) g/dL Globulin 4.0 Albumin/Globulin Ratio 0.88 Meds: Medications Generic Name Dose Route Start Last Admin Trade Name Freq PRN Reason Stop Dose Admin Sodium Chloride 10 ml 12/18/18 11:22 Saline Flush FLUSH ASDIRECTED PRN Keep Vein Open Discontinued Medications Generic Name Dose Route Start Last Admin Trade Name Freq PRN Reason Stop Dose Admin Iopamidol 100 ml 12/18/18 12:29 12/18/18 13:05 Isovue-300 (61%) IVPUSH 12/18/18 12:30 100 ml ONETIME ONE Administration Departure - Departure Time of Disposition: 14:18 Disposition: Home, Self-Care 01 Condition: Good Clinical Impression: Syncope - Discharge Information *PRESCRIPTION DRUG MONITORING PROGRAM REVIEWED*: Not Applicable *COPY OF PRESCRIPTION DRUG MONITORING REPORT IN PATIENT MELISSA: Not Applicable Instructions: Syncope, [id number] Forms: ED Department Discharge Additional Instructions: follow up with pcp for continued care. Return to the er as needed. - My Orders Last 24 Hours: My Active Orders 12/18/18 11:22 Sodium Chloride 0.9% [Saline Flush] 10 ml FLUSH ASDIRECTED PRN Peripheral IV Insertion Adult [OM.PC] Routine 12/18/18 11:23 EKG 12 Lead [EKG Documentation Completion] [RC] STAT 12/18/18 12:02 FECAL OCCULT BLOOD,POC DIAG [POC] Stat - Assessment/Plan Last 24 Hours: My Active Orders 12/18/18 11:22 Sodium Chloride 0.9% [Saline Flush] 10 ml FLUSH ASDIRECTED PRN Peripheral IV Insertion Adult [OM.PC] Routine 12/18/18 11:23 EKG 12 Lead [EKG Documentation Completion] [RC] STAT 12/18/18 12:02 FECAL OCCULT BLOOD,POC DIAG [POC] Stat
--- NOTE | 2018-12-18 13:32 | CT ---
[id number] CT/CT Abdomen Pelvis W IV EXAM: CT Abdomen Pelvis W IV CLINICAL DATA: ABDOMINAL PAIN. COMPARISON STUDY: April 2018. FINDINGS: Lung bases are clear. Patchy areas of nonmass-like nodular groundglass parenchymal opacification in both lung bases, most prominent in the left lower lobe. Gallbladder has been resected. Liver, spleen, pancreas, and adrenal glands are unremarkable. Kidneys contain multiple small simple appearing cortical cysts but otherwise unremarkable. No evidence of urinary tract obstruction. Postsurgical change of the gastroesophageal junction. No small bowel obstruction or inflammation. Appendix appears to have been resected. Correlate with surgical history. Mild amount of mesenteric edema in the lower midabdomen with a few reactive appearing lymph nodes. No obvious etiology. No colitis or diverticulitis. Uterus and adnexal regions are unremarkable. Urinary bladder is unremarkable. Of spondylosis. No significant change from the prior examination. No osseous lesion or fracture. IMPRESSION: Other than a mild amount of mesenteric edema in the lower midabdomen with a few reactive appearing lymph nodes. No significant abnormality identified in the abdomen or pelvis. Findings in the mesentery nonspecific and can be seen with mesenteric adenitis in the absence of other abnormality. Possible developing pneumonia in the lung bases, described above. Correlate for signs of infection. Luis Miguel Powell MD 12/18/18 [id number] Thank you for allowing us to participate in the care of your patient.
[2018-12-18 18:28] VITALS: BP 174/80; PULSE 79
== END 2018-12-18 14:40 | disposition home or self-care (01) ==
LOC: VM.ED 11:12
DX: R55 Syncope and collapse (principal); I13.0 Hypertensive heart and chronic kidney disease with heart failure and stage 1 through stage 4 chronic kidney disease, or unspecified chronic kidney disease; N18.3 Chronic kidney disease, stage 3 (moderate); I50.9 Heart failure, unspecified; I25.10 Atherosclerotic heart disease of native coronary artery without angina pectoris; E78.00 Pure hypercholesterolemia, unspecified; J44.9 Chronic obstructive pulmonary disease, unspecified; F41.9 Anxiety disorder, unspecified; E11.22 Type 2 diabetes mellitus with diabetic chronic kidney disease; Z91.018 Allergy to other foods; Z79.82 Long term (current) use of aspirin; Z79.899 Other long term (current) drug therapy
CPT/HCPCS: 36415; 74177; 80053; 84484; 85025; 93005; 99285; Q9967; 99284-GF